=== PATIENT | male | born 1990 | race Two or more races ===

== ENCOUNTER 2018-09-08 19:51 | Emergency (ER) | payer SELFPAY ==
--- NOTE | 2018-09-08 20:47 | ED PDOC ---
HPI: Back Time Seen by Provider: 09/08/18 20:28 Chief Complaint (Nursing): Back Pain Chief Complaint (Provider): Back Pain History Per: Patient History/Exam Limitations: no limitations Onset/Duration Of Symptoms: Days Current Symptoms Are (Timing): Better Pain Scale Rating Of: 6 Additional Complaint(s): 28 year old male with no medical history presents to the ED for an evaluation of right-sided back pain onset for one month. 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 He has had right lower back pain on a daily basis for one month which he rates 6/10 at the onset of symptoms. Patient did not take any medication until yesterday when he took one 200mg Advil with no improvement. Also reports of heavy lifting at work. Otherwise, he denies any pain in the ED, fever, chills, urine frequency or trauma to the area. Past Medical History Reviewed: Historical Data, Nursing Documentation, Vital Signs Vital Signs: Last Vital Signs Temp 98.6 F 09/08/18 20:17 Pulse 73 09/08/18 20:17 Resp 16 09/08/18 20:17 BP 135/74 09/08/18 20:17 Pulse Ox 98 09/08/18 20:17 Primary Care Provider: Will Arguelles - Medical History PMH: No Chronic Diseases - Family History Family History: States: Unknown Family Hx - Home Medications Home Medications: Ambulatory Orders Medication Instructions Recorded Cyclobenzaprine [Cyclobenzaprine 10 mg PO Q8 PRN 5 Days tab 09/08/18 HCl] Ibuprofen [Motrin Tab] 600 mg PO Q6 PRN 7 Days tab 09/08/18 - Allergies Allergies/Adverse Reactions: Allergies Allergy/AdvReac Type Severity Reaction Status Date / Time No Known Allergies Allergy Verified 09/08/18 20:16 Review of Systems ROS Statement: Except As Marked, All Systems Reviewed And Found Negative Constitutional: Negative for: Fever, Chills Genitourinary Male: Negative for: Dysuria, Frequency Musculoskeletal: Positive for: Back Pain Physical Exam - Reviewed Nursing Documentation Reviewed: Yes Vital Signs Reviewed: Yes - Physical Exam Appears: Positive for: No Acute Distress Pulses-Dorsalis Pedis (L): 2+ Pulses-Dorsalis Pedis (R): 2+ Back: Positive for: Normal Inspection (no ecchymosis, erythema or swelling on back. No tenderness on palpation on spine), Other (mild tenderness on palpation and mild right paravertebral tenderness) Extremity: Positive for: Normal ROM (with extension and flexion. Lateral rotation as well as abduction and adduction of back), Other (mild reproducible back pain with right lateral ration and abduction to the right. sensation to light touch to bilateral extremities). Negative for: Deformity (normal extension and flexion of the hip) Neurological/Psych: Positive for: Awake, Alert, Normal Tone, Oriented (x3) - ECG O2 Sat by Pulse Oximetry: 98 (RA) Pulse Ox Interpretation: Normal Medical Decision Making Medical Decision Making: Time: 20:45 Plan: Ibuprofen 600mg Patient advised that symptoms appear likely due to mild disc herniation/pinched nerve given lack of concerning feature such as fever, fecal/urinary incontinence or numbness. There is no indication for radiological imagining at this time. Patient demonstrated understanding and will follow up with PMD if he felt no improvement with Ibuprofen/Flexeril Scribe Attestation: Documented by Kyung Hua, acting as a scribe for Nyasia Astorga PA-C. Provider Scribe Attestation: All medical record entries made by the Scribe were at my direction and personally dictated by me. I have reviewed the chart and agree that the record accurately reflects my personal performance of the history, physical exam, medical decision making, and the department course for this patient. I have also personally directed, reviewed, and agree with the discharge instructions and disposition. Disposition - Clinical Impression Clinical Impression: Low back pain - Patient ED Disposition Is Patient to be Admitted: No - Disposition Referrals: Lima Beltran MD [Non-Staff] - Disposition: Routine/Home Disposition Time: 20:45 Condition: STABLE Additional Instructions: Follow up with your primary care doctor if your symptoms are not improving with medications. Take Ibuprofen or Cyclobenzaprine (muscle relaxer) as needed for pain. Avoid taking muscle relaxer if you will be driving or operating heavy machinery as it can cause drowsiness. Prescriptions: Cyclobenzaprine [Cyclobenzaprine HCl] 10 mg PO Q8 PRN 5 Days tab PRN Reason: Muscle Spasm Ibuprofen [Motrin Tab] 600 mg PO Q6 PRN 7 Days tab PRN Reason: Pain, Moderate (4-7) Instructions: Low Back Pain (DC) Forms: [email or web address] (Czech) Print Language: [email or web address]
[2018-09-08 20:57] VITALS: BP 133/70; PULSE 77; RESP 18; TEMP 98.8
[2018-09-08 21:02] VITALS: O2SAT 98
== END 2018-09-08 20:55 | disposition home or self-care (01) ==
LOC: H.ER 19:51
DX: M54.5 Low back pain (principal)